=== PATIENT | female | born 1970 | race Caucasian/White ===

== ENCOUNTER 2021-07-12 09:38 | Emergency (ER) | payer BC ==
[2021-07-12 11:42] LABS: CORONAVIRUS COVID-19 NAA NEGATIVE (NEGATIVE)
== END 2021-07-12 12:16 | disposition home or self-care (01) ==
LOC: JP.ED 09:38
DX: J40 Bronchitis, not specified as acute or chronic (principal); Z88.2 Allergy status to sulfonamides; Z20.822 Contact with and (suspected) exposure to COVID-19
CPT/HCPCS: 0241U; 87081; 87880; 99283